=== PATIENT | female | born 1960 | race Caucasian/White ===

== ENCOUNTER → 2021-01-10 | Outpatient (REF) | payer BC, OTHER | LOC: M LAB REF 08:56 | PROVIDERS: ATTEND Internal Medicine Endocrinology, Diabetes & Metabolism | DX: E04.1 Nontoxic single thyroid nodule (principal) ==

== ENCOUNTER → 2023-01-18 | Outpatient (REF) | payer BC, OTHER | LOC: M SFHCDERM 18:00 | PROVIDERS: ATTEND Nurse Practitioner Family | DX: Z12.4 Encounter for screening for malignant neoplasm of cervix (principal) ==